=== PATIENT | female | born 1985 | race American Indian/Alaskan Native ===

== ENCOUNTER 2021-09-18 04:36 | Emergency (ER) | payer OTHER ==
[2021-09-18 04:46] VITALS: BP 123/93
--- NOTE | 2021-09-18 05:07 | Emergency Department Report ---
ED ENT HPI - General Chief complaint: Skin/Abscess/Foreign Body Stated complaint: SOMETHING IN RT EAR Time Seen by Provider: 09/18/21 04:55 Source: patient Mode of arrival: Ambulatory Limitations: No Limitations - History of Present Illness Initial comments: 36-year-old female presents to the emergency department yelling and screaming crying and feeling due to a crawling insect in her right lower abdominal ports/type she reports no fever, chills, sweats. No bleeding, no nausea vomiting no chest pain palpitations MD complaint: ear pain, foreign body -: Sudden Quality: dull Consistency: constant Improves with: none Worsens with: none Associated Symptoms: denies: cough, gum swelling, sore throat, tinnitus, discharge from ear, rhinorrhea ED Dental HPI - General Chief complaint: Skin/Abscess/Foreign Body Stated complaint: SOMETHING IN RT EAR Time Seen by Provider: 09/18/21 04:55 Source: patient Mode of arrival: Ambulatory Limitations: No Limitations ED Review of Systems ROS: Stated complaint: SOMETHING IN RT EAR Other details as noted in HPI Comment: All other systems reviewed and negative ED Physical Exam - General Limitations: No Limitations General appearance: alert, in no apparent distress - Head Head exam: Present: atraumatic, normocephalic - Eye Eye exam: Present: normal appearance, PERRL, EOMI - ENT ENT exam: Present: mucous membranes moist, other (Evaluation to the right ear shows a small cockroachAnd mobile. Tympanic membranes intact) - Neck Neck exam: Present: normal inspection - Respiratory Respiratory exam: Present: normal lung sounds bilaterally. Absent: respiratory distress - Cardiovascular Cardiovascular Exam: Present: regular rate, normal rhythm. Absent: systolic murmur, diastolic murmur, rubs, gallop - GI/Abdominal GI/Abdominal exam: Present: soft, normal bowel sounds - Extremities Exam Extremities exam: Present: normal inspection - Back Exam Back exam: Present: normal inspection - Neurological Exam Neurological exam: Present: alert, oriented X3 - Psychiatric Psychiatric exam: Present: normal affect, normal mood - Skin Skin exam: Present: warm, dry, intact, normal color. Absent: rash ED Course Vital Signs 09/18/21 04:41 Temperature 98.3 F Pulse Rate 137 H Respiratory 17 Rate Blood Pressure 123/93 O2 Sat by Pulse 95 Oximetry - Foreign Body Removal Ear Foreign Body Suspected: insect If Insect Suspected: ear canal inspected-intac Foreign Body Removed: yes Foreign Body Removal Technique: irrigation Tympanic Membrane Intact: Yes Patient Tolerated Procedure: well, no complications Critical care attestation.: If time is entered above; I have spent that time in minutes in the direct care of this critically ill patient, excluding procedure time. ED Disposition Clinical Impression: Foreign body in right ear Disposition: HOME / SELF CARE / HOMELESS Is pt being admited?: No Does the pt Need Aspirin: No Condition: Stable Instructions: Ear Foreign Body Referrals: [facility] [Provider Group] - 3-5 Days
== END 2021-09-18 05:29 | disposition home or self-care (01) ==
LOC: ED 04:36
DX: T16.1XXA Foreign body in right ear, initial encounter (principal); X58.XXXA Exposure to other specified factors, initial encounter; Y93.89 Activity, other specified; Y92.89 Other specified places as the place of occurrence of the external cause; Y99.8 Other external cause status
CPT/HCPCS: 99282; 99283